=== PATIENT | female | born 1990 | race Hispanic/Latino ===

== ENCOUNTER 2022-03-19 14:36 | Emergency (ER) | payer OTHER, SELFPAY ==
[2022-03-19] MEDS ORDERED: Tetracaine 0.5% PF 4 ML BOT ONE (14:57)
[2022-03-19] MEDS ORDERED: Fluorescein Opthalmic Strip ONE (14:57)
== END 2022-03-19 15:16 | disposition home or self-care (01) ==
LOC: BURERS 14:36
DX: S05.02XA Injury of conjunctiva and corneal abrasion without foreign body, left eye, initial encounter (principal); H11.32 Conjunctival hemorrhage, left eye; X58.XXXA Exposure to other specified factors, initial encounter
CPT/HCPCS: 99283